=== PATIENT | male | born 1970 | race Caucasian/White ===

== ENCOUNTER 2024-08-29 13:32 | Emergency (ER) | payer OTHER, SELFPAY ==
[2024-08-29 13:39] VITALS: BP 140/116; PULSE 129; RESP 16; TEMP 36.2; O2SAT 100; BMI 20.9
--- NOTE | 2024-08-29 13:50 | ED_ITS ---
HPI - Arrhythmia/Palpitations General Time Seen by Provider: 13:50 Date Seen: 08/29/24 Chief Complaint: Arrhythmia/Palpitations Stated Complaint: chest pain, passed out Time Seen by Provider: 08/29/24 13:49 Source: patient, family and RN notes reviewed Mode of arrival: ambulatory Limitations: no limitations History of Present Illness HPI narrative: Patient is a very pleasant 53-year-old gentleman who does not normally see the doctor but complains of many years of chronic body pain and intermittent palpitations who comes to the emergency room after fainting earlier today. Patient notes that since he had the COVID vaccination here he has had intermittent episodes of palpitations that he describes as feeling a zheng in his head. He notes that this happens may be once a month but then sometimes will be more often. Today he was sitting after having finished lunged with colleagues at work when he did have that rushing in similar feeling in his head. He notes that he got up thinking he may faint he fell hit his elbow. He did not hit his head. Earlier in the day he had hit his head on the very top but had no loss of consciousness or significant injury. He is able to flex and extend his elbow. Patient notes that he received his COVID vaccination only because his work made him do it. He notes that he did have COVID after that. He states that he never had COVID or any problems before the vaccination. He is thinking that most likely this heart issue and intermittent palpitations is from the COVID vaccination. Patient denies history of DVT. Positive for tobacco use usually vaping. Negative for drug use. Negative for significant alcohol use. Related Data Home Medications ?Medication ?Instructions ?Recorded ?Confirmed No Known Home Medications 08/29/24 08/29/24 Allergies Allergy/AdvReac Type Severity Reaction Status Date / Time procaine [From Novocain] Allergy Mild Rash Verified 08/29/24 15:26 pencillin Allergy Unknown Uncoded 08/29/24 15:26 Review of Systems Status of ROS: Reports: 10 or more systems reviewed and unremarkable except as noted in History and below Const: Reports: fatigue; Denies: fever or chills Eyes: Denies: change in vision ENMT: Denies: neck pain Cardio: Reports: chest pain, palpitations and lightheadedness; Denies: edema, swelling of feet/ankles or shortness of breath with exertion Resp: Denies: shortness of breath or cough GI: Denies: abdominal pain, nausea or vomiting Musculo: Denies: neck pain Neuro: Denies: headache or numbness in extremities Endo: Reports: fatigue Exam Narrative: Exam Narrative: Patient is alert and oriented. Good color. Good eye contact. Head shows some superficial erythema on the top of the parietal scalp. No underlying step-offs noted. Neck is supple without midline tenderness. Mentating normally. Speech is normal. Face symmetrical. Heart with a rapid rate and irregular rhythm. Up to 140s at a time. Lungs are clear by laterally. Abdomen soft without pulsating mass. Abdomen without tenderness. Lower extremities with no calf tenderness no lower extremity edema. Moving all extremities. Const: Vital Signs, click to edit/add: Vital Signs - 24 hr 08/29/24 13:39 08/29/24 14:39 08/29/24 14:45 Temperature 97.1 F L Pulse Rate [Pulse Oximeter] 129 H Respiratory Rate 16 Blood Pressure 119/89 Blood Pressure [Ri ght Upper Arm] 140/116 H Pulse Oximetry 100 100 Oxygen Delivery Me thod Room Air Documenting provider has reviewed patient's vital signs: yes Course Course ED Course: Patient currently improved heart rate to around 110. No chest pain at this time. That has resolved. Differential diagnosis includes AFib with RVR, OR, PE, intracranial bleed, aortic dissection. Will place IV and he draw labs to include CBC, comprehensive panel, CRP, troponin, magnesium, proBNP. Reevaluation(s) Reevaluation #1: PE study negative. Head CT without evidence of intracranial bleed. Will need to start patient on oral anticoagulant. Initially ordered Cardizem 10 mg IV but patient now with a heart rate of 80. Plan on aspirin and initiation of oral anticoagulant. Consultations Consultation #1: I had the pleasure of speaking with Dr. Castillo, cardiology. At this time he agrees with admission, echocardiogram, initiation of Eliquis and Cardizem p.o.. Vital Signs Vital signs: Initial Vital Signs Temperature 97.1 F L 08/29/24 13:39 Temperature Source Temporal Artery Scan 08/29/24 13:39 Pulse Rate 129 H 08/29/24 13:39 Respiratory Rate 16 08/29/24 13:39 Blood Pressure 140/116 H 08/29/24 13:39 Blood Pressure Mean 124 H 08/29/24 13:39 Blood Pressure Position Sitting 08/29/24 13:39 Pulse Oximetry 100 08/29/24 13:39 Oxygen Delivery Method Room Air 08/29/24 13:39 Vital Signs Temperature 97.1 F L 08/29/24 13:39 Pulse Rate 129 H 08/29/24 13:39 Respiratory Rate 16 08/29/24 13:39 Blood Pressure 140/116 H 08/29/24 13:39 Pulse Oximetry 100 08/29/24 13:39 Oxygen Delivery Method Room Air 08/29/24 13:39 Temperature 97.1 F L 08/29/24 13:39 Pulse Rate 129 H 08/29/24 13:39 Respiratory Rate 16 08/29/24 13:39 Blood Pressure 119/89 08/29/24 14:45 Pulse Oximetry 100 08/29/24 14:39 Oxygen Delivery Method Room Air 08/29/24 13:39 Medications Administered Medications: Discontinued Medications Generic Name Dose Route Start Last Admin Trade Name Freq PRN Reason Stop Dose Admin Apixaban 10 mg 08/29/24 16:46 08/29/24 17:08 Apixaban 5 Mg Tablet PO 08/29/24 16:47 10 mg ONCE ONE Administration Aspirin 324 mg 08/29/24 16:31 08/29/24 17:09 Aspirin 81 Mg Tab.Chew PO 08/29/24 16:32 324 mg ONCE ONE Administration Diltiazem HCl 10 mg 08/29/24 16:25 08/29/24 17:05 Diltiazem 5 Mg/Ml Inj IVP 08/29/24 16:26 Not Given ONCE ONE Diltiazem HCl 120 mg 08/29/24 16:54 08/29/24 17:05 Diltiazem 120 Mg Cap.Er.24h PO 08/29/24 16:55 Not Given ONCE ONE MDM - Arrhythmia/Palpitations MDM Narrative Medical decision making narrative: 1. Atrial fibrillation with RVR-had initially ordered Cardizem 10 mg but heart rate was in the 80s and this was canceled. Plan then was to give oral Cardizem. However, immediately prior to this and transfer to the floor patient converted to normal sinus rhythm. Patient not a candidate for cardioversion given the fact that this has been ongoing for quite some time, but fortunately again is noted patient converted. Initial troponin negative. Second troponin negative. Patient started on aspirin and given for dose of Eliquis 10 mg. 2. Syncopal episode -. Co-worker here in states patient was truly unconscious but only for approximately 5 seconds.. Will need the observation overnight as well as echocardiogram. 3. Chronic pain -did offer Tylenol but patient declines at this time. 4. Disposition-admit to the [facility] under the care of SHERWIN Diaz. Lab Data Attestation: I reviewed the patient's lab results. Labs: Lab Results 08/29/24 08/29/24 08/29/24 Range/Units 14:20 14:25 16:34 WBC 7.90 (4.50-11.00) K/uL RBC 4.54 (4.30-5.90) m/uL Hgb 14.6 (13.5-17.5) gm/dL Hct 43.5 (37.0-53.0) % MCV 96 (80-100) fL MCH 32 (26-34) pg MCHC 34 (32-36) gm/dL RDW Coeff of Nicholas 12.0 (11.5-15.5) % Plt Count 298 (140-440) K/uL Neut % (Auto) 70.8 (42.0-72.0) % Lymph % (Auto) 19.4 L (20-44) % Love % (Auto) 8.1 (0.0-11.0) % Eos % (Auto) 1.0 (0.0-7.0) % Baso % (Auto) 0.6 (0.0-3.0) % Neut # (Auto) 5.59 (1.7-7.0) K/uL Lymph # (Auto) 1.50 (0.90-2.90) K/uL Love # (Auto) 0.60 (0.00-0.90) K/UL Eos # (Auto) 0.08 (0.00-0.50) K/uL Baso # (Auto) 0.05 (0.00-0.30) K/uL Abs Immat Gran (auto) 0.01 (0.00-0.30) K/uL Imm/Tot Granulo (auto) 0.1 % Sodium 135 (135-149) mmol/L Potassium 3.6 (3.6-5.1) mmol/L Chloride 101 (96-114) mmol/L Carbon Dioxide 25 (20-32) mmol/L Anion Gap 9 (7-15) mEq/L BUN 21 (7-30) mg/dL Creatinine 1.1 (0.5-1.5) mg/dL Estimated Creat Clear 75.60 Estimated GFR 81 ml/min Glucose 145 H (60-115) mg/dL Calcium 9.8 (8.4-10.6) mg/dL Magnesium 2.1 (1.5-2.6) mg/dL Total Bilirubin 0.5 (0.1-1.5) mg/dL AST 24 (12-35) U/L ALT 21 (4-50) U/L Alkaline Phosphatase 78 (40-150) U/L NT-Pro-B Natriuret Pep < 20 pg/mL Total Protein 7.2 (6.0-8.3) g/dL Albumin 4.7 (3.3-5.0) g/dL Lab Acknowledgement POC Troponin I 0.00 L 0.00 L (0.01-0.04) ng/ml 08/29/24 Range/Units 17:17 WBC (4.50-11.00) K/uL RBC (4.30-5.90) m/uL Hgb (13.5-17.5) gm/dL Hct (37.0-53.0) % MCV (80-100) fL MCH (26-34) pg MCHC (32-36) gm/dL RDW Coeff of Nicholas (11.5-15.5) % Plt Count (140-440) K/uL Neut % (Auto) (42.0-72.0) % Lymph % (Auto) (20-44) % Love % (Auto) (0.0-11.0) % Eos % (Auto) (0.0-7.0) % Baso % (Auto) (0.0-3.0) % Neut # (Auto) (1.7-7.0) K/uL Lymph # (Auto) (0.90-2.90) K/uL Love # (Auto) (0.00-0.90) K/UL Eos # (Auto) (0.00-0.50) K/uL Baso # (Auto) (0.00-0.30) K/uL Abs Immat Gran (auto) (0.00-0.30) K/uL Imm/Tot Granulo (auto) % Sodium (135-149) mmol/L Potassium (3.6-5.1) mmol/L Chloride (96-114) mmol/L Carbon Dioxide (20-32) mmol/L Anion Gap (7-15) mEq/L BUN (7-30) mg/dL Creatinine (0.5-1.5) mg/dL Estimated Creat Clear Estimated GFR ml/min Glucose (60-115) mg/dL Calcium (8.4-10.6) mg/dL Magnesium (1.5-2.6) mg/dL Total Bilirubin (0.1-1.5) mg/dL AST (12-35) U/L ALT (4-50) U/L Alkaline Phosphatase (40-150) U/L NT-Pro-B Natriuret Pep pg/mL Total Protein (6.0-8.3) g/dL Albumin (3.3-5.0) g/dL Lab Acknowledgement Test Added POC Troponin I (0.01-0.04) ng/ml Imaging Data CT scan - head: Attestation: I have reviewed the pertinent imaging results. My impression: Evidence of prior craniotomy. No evidence of intracranial bleed. Radiologist's impression: Remote postsurgical changes of right-sided craniotomies. No skull fracture. No acute intracranial hemorrhage or abnormal extra-axial fluid collection. No midline shift, hydrocephalus or herniation. Preserved calderon-white matter differentiation. Unremarkable white matter attenuation. Midline structures appear within normal limits. Major intracranial vasculature is unremarkable for technique. Smooth leftward nasal septal deviation. Clear visualized paranasal sinuses and mastoid air cells. Unremarkable orbits. IMPRESSION: 1. No skull fracture or acute intracranial hemorrhage identified. 2. Remote right-sided craniotomy changes. CT scan - chest: Attestation: I have reviewed the pertinent imaging results. My impression: No obvious PE Radiologist's impression: Volumetric multidetector CT images of the chest were obtained after the administration of IV contrast. 95 cc Isovue 370 low osmolar intravenous contrast Comparison: None available. Findings: The thoracic inlet and thyroid gland are unremarkable. The thoracic aorta is nonaneurysmal. There is no central filling defect to suggest pulmonary embolism. There is no mediastinal, hilar or axillary adenopathy. There is mild central bronchial thickening. There is minimal dependent basilar atelectasis. There is no dense consolidation, effusion or pneumothorax. There is demonstration of a pulmonary nodule within the middle lobe measuring 5.9 millimeters. The partially visualized upper abdominal viscera are within normal limits. The thoracic vertebral body heights are grossly maintained with minimal endplate Schmorl`s defects. There is no significant spondylolisthesis or displaced fracture. Impression: There is mild central bronchial thickening with dependent basilar atelectasis. Findings may represent minimal sequela of prior bronchitis. No evidence of pulmonary embolus. ECG Data Attestation: I personally reviewed and interpreted this ECG as follows: ECG interpretation date: 08/29/24 Interpretation: EKG by my read shows AFib with RVR at a rate of 128. Nonspecific ST and T-wave changes noted. Normal QT. Second EKG shows sinus rhythm at a rate of 61. Normal QT and OR intervals. No ST or T-wave changes. Discharge Plan Discharge Prescriptions: No Action No Known Home Medications Follow Up/Referrals: Provider,Not a Local [Primary Care Provider] -
--- NOTE | 2024-08-29 14:25 | CRLHL7_ITS ---
For Patients: As a result of the Century Cures Act, medical imaging exams and procedure reports are released immediately into your electronic medical record. You may view this report before your referring provider. If you have questions, please contact your health care provider. INDICATION: Fall, atrial fibrillation with syncope TECHNIQUE: Noncontrast axial CT of the head. Coronal and sagittal reformats. Bone and soft tissue algorithms. COMPARISON: None. FINDINGS: Remote postsurgical changes of right-sided craniotomies. No skull fracture. No acute intracranial hemorrhage or abnormal extra-axial fluid collection. No midline shift, hydrocephalus or herniation. Preserved calderon-white matter differentiation. Unremarkable white matter attenuation. Midline structures appear within normal limits. Major intracranial vasculature is unremarkable for technique. Smooth leftward nasal septal deviation. Clear visualized paranasal sinuses and mastoid air cells. Unremarkable orbits. IMPRESSION: 1. No skull fracture or acute intracranial hemorrhage identified. 2. Remote right-sided craniotomy changes. Please note that all CT scans at this facility use dose modulation, iterative reconstruction, and/or weight-based dosing when appropriate to reduce radiation dose to as low as reasonably achievable. Dictated by Kendal Lopez MD @ 08/29/2024 3:57:10 PM (Electronically Signed)
--- NOTE | 2024-08-29 14:25 | CRLHL7_ITS ---
For Patients: As a result of the Cures Act, medical imaging exams and procedure reports are released immediately into your electronic medical record. You may view this report before your referring provider. If you have questions, please contact your health care provider. Indication: Fall, AFib with syncope Technique: Volumetric multidetector CT images of the chest were obtained after the administration of IV contrast. 95 cc Isovue 370 low osmolar intravenous contrast Comparison: None available. Findings: The thoracic inlet and thyroid gland are unremarkable. The thoracic aorta is nonaneurysmal. There is no central filling defect to suggest pulmonary embolism. There is no mediastinal, hilar or axillary adenopathy. There is mild central bronchial thickening. There is minimal dependent basilar atelectasis. There is no dense consolidation, effusion or pneumothorax. There is demonstration of a pulmonary nodule within the middle lobe measuring 5.9 millimeters. The partially visualized upper abdominal viscera are within normal limits. The thoracic vertebral body heights are grossly maintained with minimal endplate Schmorl`s defects. There is no significant spondylolisthesis or displaced fracture. Impression: There is mild central bronchial thickening with dependent basilar atelectasis. Findings may represent minimal sequela of prior bronchitis. No evidence of pulmonary embolus. Please note that all CT scans at this facility use dose modulation, iterative reconstruction, and/or weight-based dosing when appropriate to reduce radiation dose to as low as reasonably achievable. Dictated by Rashid Thompson MD @ 08/29/2024 4:08:08 PM (Electronically Signed)
[2024-08-29 14:39] VITALS: O2SAT 100
[2024-08-29 14:45] VITALS: BP 119/89
[2024-08-29 14:45] LABS: Basophils Absolute Auto 0.05 K/uL (0.00-0.30); Basophils Percent Auto 0.6 % (0.0-3.0); Eosinophils Absolute Auto 0.08 K/uL (0.00-0.50); Hematocrit 43.5 % (37.0-53.0); Hemoglobin* 14.6 gm/dL (13.5-17.5); Immature Granulocytes Abs Auto 0.01 K/uL (0.00-0.30); Immature Granulocytes Pct Auto 0.1 %; Lymphocytes Percent Auto 19.4 % (20-44); Mean Corpuscular HGB Conc 34 gm/dL (32-36); Mean Corpuscular Hemoglobin 32 pg (26-34); Mean Corpuscular Volume 96 fL (80-100); Monocytes Percent Auto 8.1 % (0.0-11.0); Neutrophils Absolute Auto 5.59 K/uL (1.7-7.0); Neutrophils Percent Auto 70.8 % (42.0-72.0); Platelet Count* 298 K/uL (140-440); Red Blood Count 4.54 m/uL (4.30-5.90)
[2024-08-29 14:47] LABS: Slide Review Reflex No
[2024-08-29 15:13] LABS: Albumin* 4.7 g/dL (3.3-5.0); Chloride* 101 mmol/L (96-114); Potassium* 3.6 mmol/L (3.6-5.1); Sodium* 135 mmol/L (135-149)
[2024-08-29 15:16] LABS: Alanine Aminotransferase* 21 U/L (4-50); Alkaline Phosphatase* 78 U/L (40-150); Anion Gap 9 mEq/L (7-15); Aspartate Amino Transferase* 24 U/L (12-35); Bilirubin Total* 0.5 mg/dL (0.1-1.5); Blood Urea Nitrogen* 21 mg/dL (7-30); Carbon Dioxide* 25 mmol/L (20-32); Creatinine* 1.1 mg/dL (0.5-1.5); Estimated Glomerular Filt Rate 81 ml/min; Glucose* 145 mg/dL (60-115); Total Protein* 7.2 g/dL (6.0-8.3)
[2024-08-29 15:17] LABS: Calcium* 9.8 mg/dL (8.4-10.6); Magnesium* 2.1 mg/dL (1.5-2.6)
[2024-08-29 15:26] LABS: NT Pro B Type NatriureticPept* < 20 pg/mL
[2024-08-29] MEDS: APIXABAN 5 MG TABLET 10 MG PO ×2 (17:08→18:49)
[2024-08-29] MEDS: ASPIRIN 81 MG TAB.CHEW 324 MG PO (17:09)
== END 2024-08-29 18:50 | disposition left against medical advice (07) ==
PROVIDERS: Emergency Provider Family Medicine
DX: I48.20 Chronic atrial fibrillation, unspecified (principal); R55 Syncope and collapse
CPT/HCPCS: 36415; 70450; 71275; 80053; 83735; 83880; 84443; 84484; 85025; 93005; 94761; 99284; 99285; A9270; Q9967